=== PATIENT | female | born 1950 | race Asian ===

== ENCOUNTER 2017-10-21 15:55 | Observation (INO) ==
[2017-10-21] MEDS ORDERED: Morphine Inj 4 MG/ML Vial IV.PUSH ONE (16:31)
--- NOTE | 2017-10-21 16:34 | ED ---
HPI General Chief complaint: Chest Pain Stated complaint: chest pain Time Seen by Provider: 10/21/17 16:16 History of Present Illness HPI narrative: This patient speaks Mandarin. Translation was obtained via an official professor of languages and via the patient's son who is at bedside. 67- year-old female presents for evaluation of chest pain. Symptoms started 30 minutes prior to arrival. The patient was upstairs visiting her terminally ill when she developed a substernal chest pressure which radiates into the left shoulder and back. Symptoms have alleviated somewhat, currently 4 out of 10 pain. She has never had symptoms like this before. She reports some associated dyspnea. Denies nausea, vomiting, cough, congestion, abdominal pain , recent illness. She denies any significant medical history, she notes that she was recently seen at [facility] and told that she had a murmur after examination. She has never had a stress test. She has no other complaints at this time. Related Data Home Medications Medication Instructions Recorded Confirmed No Known Home Medications 10/21/17 10/21/17 Allergies Allergy/AdvReac Type Severity Reaction Status Date / Time Penicillins Allergy Mild Hives Verified 10/21/17 16:32 Review of Systems ROS: all other systems reviewed are negative PMFSH Medical History Medical History Gastritis (Acute) Heart murmur (Acute) Surgical History Surgical History History of appendectomy (Acute) History of tubal ligation (Acute) Social History Social History Substance History: No History of Abuse Second Hand Smoke Exposure: No Smoking Status: Never smoker How Often Do You Have a Drink Containing Alcohol: Never Recent Travel in [facility] within the Last 8 Weeks: No Recent Out of Country Travel within the Last 8 Weeks: No Exam Narrative Exam Narrative: GENERAL: Pleasant well-developed well-nourished female no acute distress resting comfortably on the ER bed. SKIN: Warm and dry. HEAD: Atraumatic. Normocephalic. EYES: Pupils equal and round. No scleral icterus. No injection or drainage. ENT: No nasal bleeding or discharge. Mucous membranes pink and moist. NECK: Trachea midline. No JVD. CARDIOVASCULAR: Regular rate and rhythm. No murmur appreciated. RESPIRATORY: No accessory muscle use. Clear to auscultation. Breath sounds equal bilaterally. GASTROINTESTINAL: Abdomen soft, non-tender, nondistended. Hepatic and splenic margins not palpable. MUSCULOSKELETAL: No obvious deformities. No clubbing. No cyanosis. No edema. NEUROLOGICAL: Awake and alert. No obvious cranial nerve deficits. Motor grossly within normal limits. Normal speech. Course Initial Documented Vital Signs Temperature 98.3 F 10/21/17 15:59 Pulse Rate 72 10/21/17 15:59 Respiratory Rate 14 10/21/17 15:59 Blood Pressure 185/84 H 10/21/17 15:59 Pulse Oximetry 97 10/21/17 15:59 Last Documented Vital Signs Temperature 98.3 F 10/21/17 15:59 Pulse Rate 92 H 10/21/17 17:23 Respiratory Rate 16 10/21/17 17:23 Blood Pressure 155/90 H 10/21/17 17:23 Pulse Oximetry 96 10/21/17 17:23 Medical Decision Making MDM Narrative Medical decision making narrative: Patient was placed on ECG monitoring pulse oximetry. A 12 EKG was obtained revealing sinus rhythm, rate 69, normal axis. Lab work, chest x-ray have been ordered. The patient will be given a full dose aspirin, sublingual nitroglycerin and morphine. Chest x-ray is unremarkable. Lab work has been reviewed, glucose is 201otherwise lab was unremarkable. Her pain resolved after the administration of nitroglycerin and morphine. At this point time the plan will be to admit the patient to the chest pain center for serial cardiac enzymes and rule out purposes. She is agreeable. Medical Screen Exam Complete: Yes Emergency Medical Condition: Yes Differential Diagnosis Differential Diagnosis: Angina, acute coronary syndrome, anxiety, costochondritis, pneumothorax, hemothorax, pericarditis, myocarditis, aortic dissection, pulmonary embolism Lab Data Result diagrams: 10/21/17 16:40 10/21/17 16:40 Lab Results 10/21/17 10/21/17 10/21/17 Range/Units 16:40 16:40 16:41 WBC 5.3 (4.0-11.0) th/mm3 RBC 4.91 (4.00-5.30) mil/mm3 Hgb 14.5 (11.6-15.3) gm/dL Hct 41.3 (35.0-46.0) % MCV 84.1 (80.0-100.0) fL MCH 29.6 (27.0-34.0) pg MCHC 35.2 (32.0-36.0) % RDW 13.1 (11.6-17.2) % Plt Count 174 (150-450) th/mm3 MPV 8.8 (7.0-11.0) fL Neut % (Auto) 73.0 H (16.0-70.0) % Lymph % (Auto) 22.5 (9.0-44.0) % [place] % (Auto) 4.0 (0.0-8.0) % Eos % (Auto) 0.3 (0.0-4.0) % Baso % (Auto) 0.2 (0.0-2.0) % Neut # (Auto) 3.9 (1.8-7.7) th/mm3 Lymph # (Auto) 1.2 (1.0-4.8) th/mm3 [place] # (Auto) 0.2 (0.0-0.9) th/mm3 Eos # (Auto) 0.0 (0.0-0.4) th/mm3 Baso # (Auto) 0.0 (0.0-0.2) th/mm3 WBC Differential . Differential Comment Auto diff final PT 10.1 (9.8-11.6) sec INR 1.0 Ratio APTT 25.9 (24.3-30.1) sec Sodium 144 (136-145) meq/L Potassium 3.7 (3.5-5.1) meq/L Chloride 110 H (98-107) meq/L Carbon Dioxide 29.2 (21.0-32.0) meq/L Anion Gap 5 (5-15) meq/L BUN 12 (7-18) mg/dL Creatinine 0.90 (0.50-1.00) mg/dL Estimated GFR 62 L (>89) mL/min Random Glucose 201 H (74-106) mg/dL Calcium 8.7 (8.5-10.1) mg/dL Magnesium 2.6 H (1.5-2.5) mg/dL Total Bilirubin 0.5 (0.2-1.0) mg/dL AST 14 L (15-37) U/L ALT 21 (10-53) U/L Alkaline Phosphatase 106 (45-117) U/L Total Creatine Kinase 75 (26-192) U/L Troponin I Less than 0.02 L (0.02-0.05) ng/mL Total Protein 7.8 (6.4-8.2) g/dL Albumin 4.0 (3.4-5.0) g/dL Imaging Data Radiologist's impression: Chest X-Ray 10/21/17 16:31 CONCLUSION: Negative examination. Discharge Plan Discharge Disposition Patient Disposition: 30 Still Patient Discharge Condition Condition: Stable Discharge Details Diagnosis: Chest pain Physicians Team ED Provider: Marichuy Fofana ED Midlevel Provider: Nino Rasmussen Primary Care Provider: Tata Gillette Rxs /Orders / Referrals /Forms Prescriptions: No Action No Known Home Medications RF: 0 Discharge Instructions Patient Printed Instructions: Chest Pain (ED) Status ED Status: With Doctor
--- NOTE | 2017-10-21 16:48 | XR ---
EXAM DATE: 10/21/2017 4:42 PM EDT AGE/SEX: 67 years / Female INDICATIONS: Chest pain. CLINICAL DATA: This is the patient's initial encounter. Patient reports that signs and symptoms have been present for 1 day and indicates a pain score of 3/10. MEDICAL/SURGICAL HISTORY: None. None. COMPARISON: No prior exams available for comparison. FINDINGS: A single AP view of the chest demonstrates the lungs to be symmetrically aerated without evidence of mass, infiltrate or effusion. The cardiomediastinal contours are unremarkable. Osseous structures a re intact. CONCLUSION: Negative examination. Electronically signed by: Hina Mata MD 10/21/2017 4:47 PM EDT
[2017-10-21 17:06] LABS: Baso % (Auto) 0.2 % (0.0-2.0); Eos % (Auto) 0.3 % (0.0-4.0); Hematocrit 41.3 % (35.0-46.0); Hemoglobin 14.5 gm/dL (11.6-15.3); Lymph # (Auto) 1.2 th/mm3 (1.0-4.8); Lymph % (Auto) 22.5 % (9.0-44.0); Mean Corpuscular HGB Conc 35.2 % (32.0-36.0); Mean Corpuscular Hemoglobin 29.6 pg (27.0-34.0); Mean Corpuscular Volume 84.1 fL (80.0-100.0); Mean Platelet Volume 8.8 fL (7.0-11.0); Mono # (Auto) 0.2 th/mm3 (0.0-0.9); Neut # (Auto) 3.9 th/mm3 (1.8-7.7); Platelet Count 174 th/mm3 (150-450); Red Blood Count 4.91 mil/mm3 (4.00-5.30); Red Cell Distribution Width 13.1 % (11.6-17.2); White Blood Count 5.3 th/mm3 (4.0-11.0)
[2017-10-21 17:11] LABS: Activated Partial Thrombo Time 25.9 sec (24.3-30.1); Prothrombin Time 10.1 sec (9.8-11.6)
[2017-10-21 17:31] LABS: Alanine Aminotransferase 21 U/L (10-53); Anion Gap 5 meq/L (5-15); Aspartate Aminotransferase 14 U/L (15-37); Blood Urea Nitrogen 12 mg/dL (7-18); Calcium 8.7 mg/dL (8.5-10.1); Carbon Dioxide 29.2 meq/L (21.0-32.0); Chloride 110 meq/L (98-107); Glomerular Filtration Rate 62 mL/min (>89); Glucose,Random 201 mg/dL (74-106); Magnesium 2.6 mg/dL (1.5-2.5); Potassium 3.7 meq/L (3.5-5.1); Sodium 144 meq/L (136-145)
[2017-10-21 17:35] LABS: Alkaline Phosphatase 106 U/L (45-117); Total Protein 7.8 g/dL (6.4-8.2)
[2017-10-21 17:39] LABS: Creatine Kinase 75 U/L (26-192)
[2017-10-21 22:18] LABS: Creatine Kinase 68 U/L (26-192)
[2017-10-22 00:43] LABS: Creatine Kinase 62 U/L (26-192)
--- NOTE | 2017-10-22 09:20 | P.HPCA ---
History of Present Illness Primary Care Physician: Tata Gillette Chief Complaint: Chest pain History of Present Illness: This is a 67-year-old female that speaks only Mandarin that presents to ED to evaluate for chest discomfort. Her history and physical examination were obtained while also using the [employer] service, housing specialist #[id number]. States she has been having this for about a year on and off. States it happens usually when she is under a lot of stress. Unfortunate she has been under a lot of stress recently. Today is the day that she was going to be talking with hospice to have her signed and hospice care as he has terminal illness. States that she had more intense discomfort yesterday and her usual discomforts. She also is short of breath with it which is not the usual symptom. Usually lasts 10 minutes to an hour and yesterday lasted about 2 hours. Described as a tightness and points to the center and left side of her chest. Nothing seems to worsen his symptoms when she has them. Denies nausea or diaphoresis. Cannot recall ever having a cardiac workup. States she is a lifetime non-smoker. Cannot recall family history of heart disease. She is a lifetime non-smoker. Denies history of hypertension, hyperlipidemia, diabetes, and known CAD. - Diagnosis (1) Chest pain Review of Systems General: Patient denies fevers, chills, and recent travel. HEENT: Patient denies headache, sore throat, difficulty swallowing. Cardiovascular: Has the chest discomfort as mentioned above. Denies sensation of heart beating rapidly or irregularly. No syncope. Denies diaphoresis. Respiratory: She was short of breath yesterday. Denies inspirational chest discomfort. Denies coughing wheezing or hemoptysis. GI: Patient denies nausea, vomiting, diarrhea, abdominal pain, bloody stools. Musculoskeletal: Patient denies joint pain or edema. Denies calf pain or edema. Neurovascular: Patient denies numbness, tingling, weakness in extremities. Denies headache. Endocrine: Denies polyuria and polydipsia. Hematologic: Denies easy bruising. Skin: Denies rash or itching. PMFSH - History History Provided By: Patient - Medical History Medical History: Medical History (Last Updated 10/21/17 @ 16:34 by Rena Hartmann) Gastritis Heart murmur - Surgical History Surgical History: Surgical History (Last Updated 10/21/17 @ 16:34 by Rena Hartmann) History of appendectomy History of tubal ligation - Tobacco History Second Hand Smoke Exposure: No Tobacco Use In Past 30 Days: No Smoking Status: Never smoker - Alcohol History How Often Do You Have a Drink Containing Alcohol: Never - Substance Use History Substance History: No History of Abuse - Travel History Recent Travel in the [place] Within the Last 8 Weeks: No Recent Travel Out of the Country Within the Last 8 Weeks: No - Immunization History Tetanus Immunization: Unsure Hx Influenza Vaccine This Season: No Medications and Allergies Active Medications: Active Medications Sodium Chloride (Ns Flush) 2 ml IV.FLUSH UNSCH PRN PRN Reason: FLUSH AFTER USING IV ACCESS Sodium Chloride (Ns Flush) 2 ml IV.FLUSH BID NIKHIL Last Admin: 10/22/17 08:05 Dose: 2 ml Sodium Chloride (Ns Flush) 2 ml IV.FLUSH PRN PRN PRN Reason: FLUSH AFTER USING IV ACCESS Allergies Allergy/AdvReac Type Severity Reaction Status Date / Time Penicillins Allergy Mild Hives Verified 10/21/17 16:32 Home Medications Medication Instructions Recorded Confirmed Type No Known Home Medications 10/21/17 10/21/17 History Exam Vital signs: Vital Signs 10/21/17 15:59 10/21/17 16:13 10/21/17 17:23 Temperature 98.3 F Pulse Rate 72 77 92 H Respiratory Rate 14 18 16 Blood Pressure 185/84 H 160/87 H 155/90 H Pulse Oximetry 97 99 96 10/21/17 18:55 10/21/17 20:00 10/21/17 23:03 Temperature 98.0 F 98.4 F 98.3 F Pulse Rate 66 64 73 Respiratory Rate 18 17 17 Blood Pressure 155/82 H 157/81 H 127/77 Pulse Oximetry 96 97 96 10/22/17 00:00 10/22/17 04:00 10/22/17 07:33 Temperature 98.3 F 98.5 F 98.0 F Pulse Rate 73 67 66 Respiratory Rate 17 15 18 Blood Pressure 127/77 133/81 135/79 Pulse Oximetry 96 95 96 10/22/17 08:13 10/22/17 08:36 Temperature Pulse Rate 64 Respiratory Rate Blood Pressure Pulse Oximetry 96 Intake & Output 09/06/18 09/07/18 09/07/18 18:59 06:59 18:59 Intake Total 0 / 0 Balance 0 / 0 Weight 68.039 kg 68.039 kg Intake: Oral 0 / 0 Other: # Voids 3 Weight On Admission 68.039 kg Narrative: GENERAL: This is a well-nourished, well-developed patient, in no apparent distress. Patient speaks in clear complete sentences. Patient is pleasant. HEENT: Head is atraumatic and normocephalic. Neck is supple without lymphadenopathy and trachea is midline. No JVD or carotid bruits. CARDIOVASCULAR: Grade 2 systolic murmur left sternal border. Regular rate and rhythm without gallops or rubs. RESPIRATORY: Clear to auscultation. Breath sounds equal bilaterally. No wheezes , rales, or rhonchi. Chest wall is nontender. No use of accessory muscles. GASTROINTESTINAL: Abdomen is nontender, nondistended. Abdomen soft. No obvious pulsatile mass or bruit. No CVA tenderness. Strong femoral pulses bilaterally. Normal bowel sounds in all quadrants. MUSCULOSKELETAL: Patient is moving upper and lower extremities freely. No calf tenderness or edema, no Homans sign. Strong pulses in upper and lower extremities. NEUROLOGICAL: Patient is alert and oriented. Cranial nerves 2-12 are grossly intact. No focal deficits and speech is clear. SKIN: No rash and turgor is normal. Results 10/21/17 16:40 10/21/17 16:40 Cardiac Enzymes 10/21/17 10/21/17 10/21/17 Range/Units 16:40 20:40 22:50 AST 14 L (15-37) U/L Troponin I Less than 0.02 L Less than 0.02 L Less than 0.02 L (0.02-0.05) ng/mL Coagulation 10/21/17 Range/Units 16:41 PT 10.1 (9.8-11.6) sec APTT 25.9 (24.3-30.1) sec CBC 10/21/17 Range/Units 16:40 WBC 5.3 (4.0-11.0) th/mm3 RBC 4.91 (4.00-5.30) mil/mm3 Hgb 14.5 (11.6-15.3) gm/dL Hct 41.3 (35.0-46.0) % Plt Count 174 (150-450) th/mm3 Neut # (Auto) 3.9 (1.8-7.7) th/mm3 Lymph # (Auto) 1.2 (1.0-4.8) th/mm3 [place] # (Auto) 0.2 (0.0-0.9) th/mm3 Eos # (Auto) 0.0 (0.0-0.4) th/mm3 Baso # (Auto) 0.0 (0.0-0.2) th/mm3 Comprehensive Metabolic Panel 10/21/17 Range/Units 16:40 Sodium 144 (136-145) meq/L Potassium 3.7 (3.5-5.1) meq/L Chloride 110 H (98-107) meq/L Carbon Dioxide 29.2 (21.0-32.0) meq/L BUN 12 (7-18) mg/dL Creatinine 0.90 (0.50-1.00) mg/dL Calcium 8.7 (8.5-10.1) mg/dL AST 14 L (15-37) U/L ALT 21 (10-53) U/L Alkaline Phosphatase 106 (45-117) U/L Total Protein 7.8 (6.4-8.2) g/dL Albumin 4.0 (3.4-5.0) g/dL Intake and Output 10/21/17 10/22/17 10/22/17 22:59 06:59 14:59 Intake Total 0 / 0 Balance 0 / 0 Intake: Oral 0 / 0 Other: # Voids 3 Weight 68.039 kg 68.039 kg Weight On Admission 68.039 kg EKG interpretations - EKG EKG shows: sinus rhythm (EKGs in sinus rhythm with nonspecific T-wave changes.) Caprini VTE Risk Assessment Caprini VTE Risk Assessment: Moderate/High Risk (score >= 2) Caprini Risk Assessment Model: Point Value = 1 Point Value = 2 Point Value = 3 Point Value = 5 Age 41-60 Minor surgery BMI > 25 kg/m2 Swollen legs Varicose veins or History of unexplained or recurrent spontaneous Oral contraceptives or hormone replacement Sepsis (< 1 month) Serious lung disease, including pneumonia (< 1 month) Abnormal pulmonary function Acute myocardial infarction Congestive heart failure (< 1 month) History of inflammatory bowel disease Medical patient at bed rest Age 61-74 Arthroscopic surgery Major open surgery (> 45 min) Laparoscopic surgery (> 45 min) Malignancy Confined to bed (> 72 hours) Immobilizing plaster cast Central venous access Age >= 75 History of VTE Family history of VTE Factor V Leiden Prothrombin [id number] Lupus anticoagulant Anticardiolipin antibodies Elevated serum homocysteine Heparin-induced thrombocytopenia Other congenital or acquired thrombophilia Stroke (< 1 month) Elective arthroplasty Hip, pelvis, or leg fracture Acute spinal cord injury (< 1 month) Prophylaxis Regimen: Total Risk Factor Score Risk Level Prophylaxis Regimen 0-1 Low Early ambulation 2 Moderate Order ONE of the following: *Sequential Compression Device (SCD) *Heparin 5000 units SQ BID 3-4 Higher Order ONE of the following medications: *Heparin 5000 units SQ TID *Enoxaparin/Lovenox 40 mg SQ daily (WT < 150 kg, CrCl > 30 mL/min) *Enoxaparin/Lovenox 30 mg SQ daily (WT < 150 kg, CrCl > 10-29 mL/min) *Enoxaparin/Lovenox 30 mg SQ BID (WT < 150 kg, CrCl > 30 mL/min) AND/OR *Sequential Compression Device (SCD) 5 or more Highest Order ONE of the following medications: *Heparin 5000 units SQ TID (Preferred with Epidurals) *Enoxaparin/Lovenox 40 mg SQ daily (WT < 150 kg, CrCl > 30 mL/min) *Enoxaparin/Lovenox 30 mg SQ daily (WT < 150 kg, CrCl > 10-29 mL/min) *Enoxaparin/Lovenox 30 mg SQ BID (WT < 150 kg, CrCl > 30 mL/min) AND *Sequential Compression Device (SCD) Assessment and Plan - Assessment (1) Chest pain Code(s): R07.9 - Chest pain, unspecified Status: Acute - Plan * Chest pain: Patient has had serial cardiac enzymes and EKGs for ruling out purposes. She was seen by Dr. Haque of cardiology in the chest pain center. She will undergo a Lexiscan. She will be discharged home if her stress test is nonischemic with instructions to follow-up with PCP. Return to ED for interval issues. This was explained to her with [employer] translation service. Her son was also the bedside he also was assisting in translation. Patient is stable at this time. She is agreeable to this plan. H&P: Quality - VTE Deep Vein Thrombosis/Pulmonary Embolism Present on Admission: No
[2017-10-22] MEDS ORDERED: Regadenoson Inj 0.4 MG/5 ML Syringe IV.PUSH ONE (10:53)
--- NOTE | 2017-10-22 12:30 | NM ---
EXAM DATE: 10/22/2017 12:24 PM EDT AGE/SEX: 67 years / Female INDICATIONS:Angina. . Sub-sternal chest pain radiating to the left shoulder and back with dyspnea. CLINICAL DATA: This is the patient's initial encounter. Patient reports that signs and symptoms have been present for 1 day and indicates a pain score of 7/10. MEDICAL/SURGICAL HISTORY: . Gastritis. Heart murmur. Appendectomy. Tubal ligation. COMPARISON: No prior exams available for comparison. DOSE: 8.2 mCi Tc 99m Myoview at rest 26.3 mCi [id number] at stress 0.4 mg Lexiscan STRESS SYMPTOMS: Short of breath. EJECTION FRACTION: >70 % TECHNIQUE: The patient underwent pharmacologic stress with infusion of prescribed dose. Continuous ECG tracing was monitored during stress. Gated SPECT imaging was performed after stress and conventi onal SPECT imaging was performed at rest. The examination was performed on a SPECT/CT scanner, both attenuation and non-corrected datasets were reviewed. FINDINGS: Distribution: The maximum perfused segment at stress is in the anterior lateral wall. Perfusion Study: The pattern of perfusion at stress is within normal limits. Gated Study: There are intact wall motion and wall thickening without hypokinetic or dyskinetic segm ents. The ejection fraction is calculated at >70%. RISK CATEGORY: Low (<1% Annual Motality Rate) CONCLUSION: 1. Negative for stress-induced ischemia Electronically signed by: Moris Murillo MD 10/22/2017 12:28 PM EDT
--- NOTE | 2017-10-22 16:15 | ECG ---
Date Performed: 10/21/2017 Time Performed: 16:27:07 PTAGE: 67 years EKG: Sinus rhythm NORMAL ECG NO PREVIOUS TRACING DOCTOR: Guerda Haque Interpretating Date/Time 10/22/2017 16:14:31
--- NOTE | 2017-10-22 16:19 | ECG ---
Date Performed: 10/21/2017 Time Performed: 23:00:29 PTAGE: 67 years EKG: Sinus rhythm NONSPECIFIC T-WAVE ABNORMALITY BORDERLINE ECG Since PREVIOUS TRACING , no significant change noted DOCTOR: Guerda Haque Interpretating Date/Time 10/22/2017 16:18:40
--- NOTE | 2017-10-22 16:19 | ECG ---
Date Performed: 10/21/2017 Time Performed: 20:43:07 PTAGE: 67 years EKG: Sinus rhythm NONSPECIFIC T-WAVE ABNORMALITY BORDERLINE ECG Since PREVIOUS TRACING , no significant change noted PREVIOUS TRACIN10/21/2017 16.27 DOCTOR: Guerda Haque Interpretating Date/Time 10/22/2017 16:18:19
--- NOTE | 2017-10-22 16:24 | TR ---
Date Performed: 10/22/2017 Time Performed: 11:06:45 DOCTOR: Guerda Haque DRUG LIST: CLINICAL HISTORY: REASON FOR TEST: REASON FOR ENDING: OBSERVATION: CONCLUSION: Lexiscan stress test was performed under standard four minute protocol. Radionuclid e was injected one minute prior to ending the test. No electrocardiographic abormalities were present to suggest ischemia. Nuclear imaging and interpretation are pending. COMMENTS: No electrocardiographic abormalities were present to suggest ischemia. Nuclear imagin g and interpretation are pending.
== END 2017-10-22 14:15 | disposition home or self-care (01) ==
LOC: NEDA 15:55 → NEPC 15:55 → NEPHCDU 18:40
PROVIDERS: ADMIT Internal Medicine Interventional Cardiology; ATTEND Internal Medicine Interventional Cardiology
DX: Z98.51 Tubal ligation status; R06.02 Shortness of breath; Z90.49 Acquired absence of other specified parts of digestive tract; K29.00 Acute gastritis without bleeding; R07.9 Chest pain, unspecified; R94.31 Abnormal electrocardiogram [ECG] [EKG]; Z88.0 Allergy status to penicillin